=== PATIENT | male | born 1990 | race Caucasian/White ===

== ENCOUNTER 2020-07-16 14:10 | Inpatient (IN) ==
[2020-07-16] MEDS ORDERED: Al Hydrox/Mg Hydrox/Simet LIQ 30 ML UDC PO PRN (14:42)
[2020-07-19 08:45] LABS: HDL Cholesterol 70.8 mg/dL
[2020-07-21] MEDS ORDERED: Haloperidol 5 mg/ml SDV IV/IM 5 MG/ML AMP ONE (16:23)
[2020-07-21] MEDS ORDERED: LORazepam 2 mg VIAL 1 ml ONE (16:23)
[2020-07-21] MEDS ORDERED: diPHENhydraMINE IV 50 MG/ML 1 ml VIAL (BENADRYL) ONE (16:23)
[2020-07-22 00:07] LABS: B garinii/B afzelii PCR Negative (Negative); B mayonii PCR Negative (Negative)
[2020-07-23] MEDS: Nicotine GUM 2MG FRUIT FLAVOR PO PRN ×3 (12:51→18:07)
[2020-07-23] MEDS ORDERED: Nicotine GUM 4MG FRUIT FLAVOR PO PRN (20:45)
[2020-07-25 09:59] VITALS: BP 143/78
== END 2020-07-25 13:00 | disposition home or self-care (01) | DRG 753 ==
LOC: ED 14:10 → BSU 18:34
PROVIDERS: ADMIT Psychiatry & Neurology Psychiatry; ATTEND Psychiatry & Neurology Psychiatry